=== PATIENT | male | born 1975 | race Caucasian/White ===

== ENCOUNTER 2023-01-25 19:43 | Emergency (ER) | payer SELFPAY ==
[~2023-01-25] VITALS: Ht 188 cm; Wt 93.0 kg
[2023-01-25 19:57] VITALS: O2SAT 99
[2023-01-25 21:30] VITALS: BP 122/69; PULSE 99; RESP 16; TEMP 98.4
== END 2023-01-25 21:31 | disposition home or self-care (01) ==
LOC: ER 21:00
DX: F10.10 Alcohol abuse, uncomplicated (principal); Y90.0 Blood alcohol level of less than 20 mg/100 ml
CPT/HCPCS: 99283